=== PATIENT | female | born 1985 | race Caucasian/White ===

== ENCOUNTER → 2021-05-13 | Outpatient (CLI) | payer OTHER | END | disposition home or self-care (01) | LOC: RADMRIMAIN 09:26 | PROVIDERS: ATTEND Family Medicine | DX: Z53.9 Procedure and treatment not carried out, unspecified reason (principal) ==

== ENCOUNTER → 2021-07-05 | Outpatient (CLI) | payer OTHER ==
--- NOTE | 2021-07-06 04:36 | MR ---
EXAMINATION TYPE: MR hip RT wo con DATE OF EXAM: 07/05/2021 COMPARISON: None HISTORY: Pain and clicking in right hip Multiplanar multiecho imaging of the pelvis and right hip without contrast. The pelvic ring is intact. Proximal femurs and hip joints are intact. Hip joint spaces appear fairly normal. There is no sign of hip dysplasia. Signal pattern in the femoral heads appears normal. There is no evidence of avascular necrosis. There is no evidence for fracture. There is no evidence of hip joint effusion. Sacroiliac joints appear normal. There is no evidence of a pelvic mass. Bladder distends smoothly. Ut erus appears normal. There is no sign of free fluid in the pelvis. There is no sign of inguinal herni a. There is no evidence of a soft tissue mass. Pelvic musculature appears normal. IMPRESSION: Negative MR scan of the right hip. No evidence of any significant arthritic disease.
== END | disposition home or self-care (01) ==
LOC: RADMRIMAIN 10:51
PROVIDERS: ATTEND Family Medicine
DX: M25.551 Pain in right hip (principal)